=== PATIENT | female | born 1990 | race Caucasian/White ===

== ENCOUNTER 2016-09-06 07:56 | Day surgery (SDC) | payer OTHER ==
[~2016-09-06] VITALS: Ht 175.3 cm; Wt 67.1 kg
--- NOTE | 2016-09-06 06:37 | PCM.HPANE ---
Patient Data Surgeon Admitting Provider: Attending Provider:Andreas Aaron MD Primary Care Physician:Radha Goss Other Provider:Tyra Chester Anesthesia Reason for Visit Left Wrist Ganglion Cyst Ht/WT & BMI Height (Feet): 5 Height (Inches): 9 Weight (Kilograms): 67.132 Body Mass Index 21.00 Allergies Coded Allergies: No Known Allergies (Unverified , 09/05/16) Past Anesthesia History Anesthesia History: Denies:: Anesthesia Reactions, Malignant Hyperthermia Diabetes History Hx Diabetes?: No MRSA MRSA: No Medications Reported Medications Multivits,Ca,Minerals/Iron/FA (Women's Daily Formula Caplet)500-18-0.4 Tablet1 Each PO DAILY 09/05/16 Norgestrel-Ethinyl Estradiol (Low-Ogestrel)1 Each Tablet1 Each PO DAILY 09/05/16 Fexofenadine/Pseudoephedrine ER (Genny-D 12 Hour)1 Each Tablet1 Tablet PO BID 09/05/16 Albuterol HFA (Proair HFA)8.5 Gm Hfa.aer.ad2 Puffs INHALATION Q4H PRN PRN #1 INHALER 09/05/16 History History of ENT Problems?: Yes HEENT History: Positive for:: Sinus Problem (ALLERGIC RHINITIS) Other HEENT Pertinent History: S/P TONSILLECTOMY Hx of Heart Problems?: No Cardiovascular History: Denies:: Heart Murmur Hypertension Hx of Respiratory Problem?: No Respiratory History: Denies:: Use of C-PAP Machine Hx Neurologic Problems?: No Hx of GI Problems?: No Hx of Problems?: No Female Hx: Denies:: Currently Skin History: Denies:: History Skin Disorders? Pressure Ulcers Hx Musculoskeletal Problems?: Yes Hx of Psycho/Social Problems?: No Hx Surgeries?: Yes (TONSILLECTOMY) Hx Any Other Health Problems?: Yes Other History: Denies:: Cancer Endocrine Disease Hospitalization Thyroid Disease Hx Diabetes: No Stop/Bang S-Snoring: Do You Snore Loudly: No T-Tired: feel tired, fatigued: No O-Obsered: Observed not breath: No P-Blood Pressure: treated: No B- Body Mass Index > 35 kg/m2: No A- Age over 50: No N- Neck Large Circumference: No G- Gender Male: No ARELIS Total Score: 0 ARELIS Risk Assessment: Low Risk, <3 Yes Risk Assessment Category Category 1A: Patient has history of documented sleep apnea, and HAS NOT received any narcotic, sedative or anesthesia administration during this stay. Category 1B: Patient has history of documented sleep apnea, and HAS received any narcotic , sedative or anesthesia administration during this stay Category 2: Patient has SUSPECTED Obstructive Sleep Apnea, and HAS received any narcotic , sedative or anesthesia administration during this stay. Category 3: Patient has SUSPECTED Obstructive Sleep Apnea and HAS NOT received narcotic, sedative or anesthesia administration during this stay. Category 4: Outpatient in Procedural Areas with known sleep apnea or who screen positive for High Risk via the STOP/BANG questionnaire. Exam Exam General Appearance: Alert, Oriented X3, Cooperative, No Acute Distress HEENT/AIRWAY: MP 2 Lungs: Clear to Auscultation, Normal Air Movement Heart: Exam Unremarkable, Regular Rate/Rhythm, No Murmurs/Rubs/Gallops Plan Impression Patient chart reviewed, patient interviewed and anesthestic plan with risks, benefits, and alternatives discussed, and informed consent obtained. ASA Physical Status: ASA1 Normal Healthy Anesthetic Plan: Regional Block Bene/Risks/Altern/Consents: Yes HP Complete Prior to Induction: Yes Latrice Crystal MD Sep 06, 2016 06:36
[~2016-09-06 07:56] MED LIST: ALBU8.5H2 INHALATION; CeFAZolin Inj 2 GM in IV Premix 1 EACH IV ONE; FEXO1TAB4 PO; MULT-1080 PO; NORG1TAB32 PO
[2016-09-06] MEDS ORDERED: fentaNYL-PF 50 mCg/mL 2 mL Inj ONE (07:57)
[2016-09-06 08:38] VITALS: BP 111/66; PULSE 55; RESP 17; O2SAT 99
[2016-09-06] MEDS: Lactated Ringer's 1,000 ML IV SCH ×2 (08:51→10:39)
[2016-09-06] MEDS ORDERED: Bupivacaine-MPF 0.5% 30 mL Inj INFILTRATE ONE (10:56)
[2016-09-06] MEDS ORDERED: Lactated Ringer's 500 ML IV PRN (10:58)
[2016-09-06] MEDS ORDERED: Lactated Ringer's 1,000 ML IV SCH (10:58)
[2016-09-06] MEDS ORDERED: HYDROmorphone 1 mg/mL Inj IVPUSH PRN (11:00)
[2016-09-06] MEDS ORDERED: Atropine 0.4 mg/mL Inj IVPUSH PRN (11:00)
[2016-09-06] MEDS ORDERED: hydrALAZINE 20 mg/mL Inj IVPUSH PRN (11:00)
[2016-09-06] MEDS ORDERED: MetoCLOpramide 5 mg/mL 2 mL Inj IVPUSH PRN (11:00)
[2016-09-06] MEDS ORDERED: Phenylephrine 10,000 mCg/mL Inj IVPUSH PRN (11:00)
[2016-09-06] MEDS ORDERED: EPHEDrine Sulfate 50 mg/mL Inj IVPUSH PRN (11:00)
[2016-09-06] MEDS ORDERED: Dexamethasone 4 mg/mL Inj IVPUSH PRN (11:00)
[2016-09-06] MEDS ORDERED: Ondansetron 2 mg/mL 2 mL Inj IVPUSH PRN (11:00)
[2016-09-06] MEDS ORDERED: Labetalol 5 mg/mL 4 mL Inj IV PRN (11:00)
[2016-09-06] MEDS ORDERED: fentaNYL-PF 50 mCg/mL 2 mL Inj IVPUSH PRN (11:00)
[2016-09-06 11:25] VITALS: BP 120/76; PULSE 58; RESP 14; O2SAT 100
--- NOTE | 2016-09-06 12:08 | PCM.ANEP2 ---
Post Anesthesia Evaluation ASA/CMS Post Anesthesia VS in Patient's Normal Range?: Yes Resp Stable; Airway Patent?: Yes CV Function & Hydration Stable: Yes Mental Status Recovered?: Yes Pain control Satisfactory?: Yes N/V Control Satisfactory?: Yes Latrice Crystal MD Sep 06, 2016 12:08
--- NOTE | 2016-09-06 12:08 | PCM.ANEP1 ---
Post Anesthesia Phase 1 PACU Phase 1 Assessment Vital Signs Vital Signs Date Time Temp Pulse Resp B/P Pulse Ox O2 Delivery O2 Flow Rate FiO2 09/06/16 11:25 36.4 58 14 120/76 100 Room Air 09/06/16 08:38 36.2 55 17 111/66 99 Room Air Anesthetic Administered: Regional Block Level of Alertness: Awake, talking JASON's with Equal Strength: Yes Pain: No Nausea or Vomiting: No Oxygen Delivery: Room Air Lungs: Clear to Auscultation, Normal Air Movement Latrice Crystal MD Sep 06, 2016 12:08
[2016-09-06 12:18] VITALS: BP 118/62; PULSE 60; RESP 16; O2SAT 100
--- NOTE | 2016-09-10 21:00 | OP ---
[address] [address] OPERATIVE REPORT PATIENT: NINFA GRUBER V : 1990 MR#: [id number] ADMIT: 09/06/2016 JOB ID: [id number] DATE OF SURGERY: 09/06/2016 PREOPERATIVE DIAGNOSIS(ES): Left dorsal wrist ganglion. POSTOPERATIVE DIAGNOSIS(ES): Left dorsal wrist ganglion. PROCEDURE: Left dorsal wrist ganglionectomy. SURGEON: Andreas Aaron MD. MOLD YARD SUPERVISOR: None. ANESTHESIA: Staci block with local and MAC. ESTIMATED BLOOD LOSS: Minimal. SPECIMEN: Left dorsal wrist ganglion to Pathology. INDICATIONS FOR PROCEDURE: This is a 26-year-old female patient with a left dorsal wrist mass that is tender and painful consistent with a dorsal wrist ganglion. At this point, excision is indicated. PROCEDURES AND FINDINGS: The patient was identified in the preoperative area. Surgical site was marked. The patient was then taken back to the operating room and placed supine on the operating table. Appropriate time-outs were taken. Staci block was then placed by Anesthesia smoothly. MAC was induced smoothly. The patient was then prepped and draped in usual sterile manner. A chevron incision was then made directly over the dorsal wrist mass. This was done with a 15 blade. I then performed blunt and sharp dissection down through the underlying soft tissue to the extensor retinaculum. I palpated the area and the mass appears to be below that. I split the extensor retinaculum just over the portion of the mass and deepened the incision down to what appeared to be a ganglion cyst. It is quite thick walled. I dissected the ganglion cyst away from the surrounding soft tissue. Incision was then made around the ganglion cyst and around the dorsal wrist capsule with a #15 blade. This was done just to the capsule. The cyst was elevated off the capsule along with a portion of the capsule. The joint was examined. There was no intra-articular component of the ganglion cyst. Hemostasis was obtained with bipolar electrocautery after the tourniquet was released. I then performed a dorsal wrist block with Marcaine. I also infiltrated some Marcaine around the surgical site and around the capsulotomy. Once hemostasis was obtained, the incision was then reapproximated, first with a layer of 3-0 Monocryl deep dermal suture, followed by 4-0 Monocryl running subcuticular suture. The patient tolerated the procedure well. Needle count, sponge count, and instrument counts were correct at the end of the procedure. The patient was transported to recovery in stable condition.
--- NOTE | 2016-09-11 09:58 | PATH ---
SURGICAL PATHOLOGY Attending Physician:Andreas Aaron CASE STATUS: Signed Out PATIENT NAME: NINFA GRUBER V. PID: [id number] : 1990 DATE COLLECTED:09/06/2016 20:45 SPECIMEN: Ganglion Cyst CLINICAL HISTORY: LEFT WRIST GANGLION 1). LEFT WRIST GANGLION FINAL DIAGNOSIS: 1.SOFT TISSUE, LEFT WRIST, EXCISION: GANGLION CYST. ICD10 CODE M67.4 GROSS DESCRIPTION: The specimen is received in one formalin filled container labeled with the patient's name, sublabeled "left wrist ganglion" and consists of a pink john portion of tissue which measures 1.0 0.6 x 0.4 CM. The specimen is inked blue trisected and entirely submitted in one cassette. 09/06/2016 DAC MICRO DESCRIPTION: See diagnosis. ICD-9 CODES: CPT CODES: 1: 97263 Electronically Signed Out Patrick Marshall MD, PhD [facility], [place] [address] Technical component performed at [facility], [address] [place] [address] Ave[address], [place], [address]
== END 2016-09-06 23:59 | disposition home or self-care (01) ==
LOC: SAS 07:56
PROVIDERS: ATTEND Plastic Surgery
DX: M67.432 Ganglion, left wrist (principal); J30.9 Allergic rhinitis, unspecified
CPT/HCPCS: 25111; J0690; J2250; J3010; J7120